=== PATIENT | male | born 1980 | race Two or more races ===

== ENCOUNTER 2023-06-06 19:19 | Emergency (ER) | payer OTHER ==
[~2023-06-06] VITALS: Ht 162.6 cm; Wt 90.7 kg
[2023-06-06] MEDS ORDERED: ZESTRIL2.5 MG PO (20:11)
[2023-06-06] MEDS ORDERED: MOBIC7.5 MG PO (22:41)
== END 2023-06-06 22:56 | disposition home or self-care (01) ==
LOC: ER 19:19
DX: S20.211A Contusion of right front wall of thorax, initial encounter (principal); S60.221A Contusion of right hand, initial encounter; W10.8XXA Fall (on) (from) other stairs and steps, initial encounter; Y93.89 Activity, other specified; Y92.89 Other specified places as the place of occurrence of the external cause; Y99.9 Unspecified external cause status